=== PATIENT | male | born 1935 | race African-American/Black ===

== ENCOUNTER 2020-11-02 09:06 | Outpatient (CLI) | payer MEDICARE | END 2020-11-02 09:07 | disposition home or self-care (01) | LOC: CSHWCC 09:06 | PROVIDERS: ATTEND Nurse Practitioner Family | DX: I87.311 Chronic venous hypertension (idiopathic) with ulcer of right lower extremity (principal); L97.812 Non-pressure chronic ulcer of other part of right lower leg with fat layer exposed; R60.0 Localized edema; I69.954 Hemiplegia and hemiparesis following unspecified cerebrovascular disease affecting left non-dominant side; B35.1 Tinea unguium; B37.2 Candidiasis of skin and nail; I82.409 Acute embolism and thrombosis of unspecified deep veins of unspecified lower extremity; I70.293 Other atherosclerosis of native arteries of extremities, bilateral legs; I87.2 Venous insufficiency (chronic) (peripheral); L08.89 Other specified local infections of the skin and subcutaneous tissue; B96.5 Pseudomonas (aeruginosa) (mallei) (pseudomallei) as the cause of diseases classified elsewhere; L60.1 Onycholysis; L60.8 Other nail disorders; W17.89XS Other fall from one level to another, sequela; Z85.46 Personal history of malignant neoplasm of prostate; Z91.81 History of falling | CPT/HCPCS: 11042; 97139; G0463; 99213 ==

== ENCOUNTER 2021-01-06 10:00 | Outpatient (CLI) | payer MEDICARE | END 2021-01-06 10:01 | disposition home or self-care (01) | LOC: CSHWCC 10:00 | PROVIDERS: ATTEND Nurse Practitioner Family | DX: I87.311 Chronic venous hypertension (idiopathic) with ulcer of right lower extremity (principal); L97.812 Non-pressure chronic ulcer of other part of right lower leg with fat layer exposed; R60.0 Localized edema; I70.293 Other atherosclerosis of native arteries of extremities, bilateral legs; I87.2 Venous insufficiency (chronic) (peripheral); I69.954 Hemiplegia and hemiparesis following unspecified cerebrovascular disease affecting left non-dominant side; L08.89 Other specified local infections of the skin and subcutaneous tissue; B96.5 Pseudomonas (aeruginosa) (mallei) (pseudomallei) as the cause of diseases classified elsewhere; B37.2 Candidiasis of skin and nail; B35.1 Tinea unguium; I82.409 Acute embolism and thrombosis of unspecified deep veins of unspecified lower extremity; L60.1 Onycholysis; L60.8 Other nail disorders; W17.89XS Other fall from one level to another, sequela; Z85.46 Personal history of malignant neoplasm of prostate; Z91.81 History of falling | CPT/HCPCS: 29581; 97139; G0463; 99213 ==

== ENCOUNTER 2021-01-28 10:18 | Outpatient (CLI) | payer MEDICARE | END 2021-01-28 10:19 | disposition home or self-care (01) | LOC: CSHWCC 10:18 | PROVIDERS: ATTEND Nurse Practitioner Family | DX: I87.311 Chronic venous hypertension (idiopathic) with ulcer of right lower extremity (principal); I87.2 Venous insufficiency (chronic) (peripheral); L97.812 Non-pressure chronic ulcer of other part of right lower leg with fat layer exposed; I82.409 Acute embolism and thrombosis of unspecified deep veins of unspecified lower extremity; R60.0 Localized edema; I69.954 Hemiplegia and hemiparesis following unspecified cerebrovascular disease affecting left non-dominant side; B35.1 Tinea unguium; B37.2 Candidiasis of skin and nail; L08.89 Other specified local infections of the skin and subcutaneous tissue; B96.5 Pseudomonas (aeruginosa) (mallei) (pseudomallei) as the cause of diseases classified elsewhere; L60.1 Onycholysis; L60.8 Other nail disorders; W17.89XD Other fall from one level to another, subsequent encounter; Z85.46 Personal history of malignant neoplasm of prostate; Z91.81 History of falling | CPT/HCPCS: 97139; G0463; 99213 ==